=== PATIENT | female | born 1930 | race Caucasian/White ===

== ENCOUNTER → 2017-06-16 | Outpatient (CLI) | payer OTHER, BC ==
[~2017-06-16] MED LIST: ADULT LOW DOSE81 MG PO; APAP650; ASPIR 8181 M1; BACTRIM DS TAB1 EACH PO; BIOTIN1 M1; CENTRUM SILVER1 EAC2; COLACE100 MG PO; COUMADIN 2 MG TA2 M1 PO; COUMADIN 4 MG TA4 M1 PO; COUMADIN 5 MG TA5 M1 PO; ENOXAPARIN100 MG/11 SUBQ; ENOXAPARIN30 MG/0.1 SUBQ; HYDROCODONE-AP1 EAC6 PO; LASIX 20 MG TAB20 MG PO; LIDODERM 5%1 PATC1 TRANSDERM; MIRALAX17 G1 PO; PRAVACHOL20 MG PO; PROTONIX40 M1 PO; TOPROL XL25 MG PO; TRAMADOL 50 MG50 MG PO; TYLENOL325 MG PO; XARELTO15 MG PO; ZOFRAN4 MG
[2017-06-16 15:29] LABS: HEMATOCRIT 33.7 % (37.0-47.0); HEMOGLOBIN 10.5 gm/dL (12.0-15.0); MCH 20.9 pg (26.0-34.0); MCHC 31.2 g/dL (28.0-37.0); MCV 66.8 fL (80.0-100.0); RBC 5.05 mil/uL (4.20-5.00); RDW 19.2 % (10.5-14.5); WBC 6.9 thou/uL (4.0-11.0)
[2017-06-16 15:42] LABS: CALCIUM 9.1 mg/dL (8.5-10.1); CREATININE 0.8 mg/dL (0.6-1.0); POTASSIUM 4.4 mmol/L (3.5-5.1)
== END ==
LOC: SEN 12:17 → RAD 12:44 → SEN 12:44
PROVIDERS: Family Medicine
DX: I51.7 Cardiomegaly (principal); K44.9 Diaphragmatic hernia without obstruction or gangrene; R05 Cough

== ENCOUNTER 2017-08-11 15:38 | Inpatient (IN) | payer OTHER, BC ==
[~2017-08-11] VITALS: Ht 162.6 cm; Wt 70.6 kg
--- NOTE | ~2017-08-11 | PLAN ---
[facility] [place] [address] [address] REHAB UNIT PLAN OF CARE Name: ZULAY HDEZ SARAH Room #: 511-P ADM IN M.R.#: [id number] Admission: 08/11/17 Attend Phys: Parish Pagan MD Discharge: Date of : [birth year] Report #: [id number] THIS REPORT FOR: //name// CC: Parish Up DATE OF SERVICE: 08/13/2017 The patient is seen back today in followup. She continues to complain of right knee pain. She notes discomfort with ambulation, motions over her medial knee. On exam, she is alert, pleasant. Last recorded temperature 36.5, pulse 89, respirations 24, blood pressure 139/69. She has the old right knee incision from her prior patellar tendon repair. There is no swelling, but she does have pain along the medial joint line and medial to the patellar tendon. No obvious instability anterior, posterior or medial lateral. X-ray results reviewed. No evidence of a fracture, but the recommendation was to encourage an MRI of the knee to confirm that all the structures were intact. From a functional perspective, she does need mod assist with transfers and is ambulating 100 feet min assist with a front-wheeled walker, but has antalgia with pain involving that right knee. In occupational therapy, she is min assist with lower body dressing. ASSESSMENT: 1. Right knee pain affecting her therapy involvement. She has medial joint line pain. Prior history of a patellar tendon repair by Dr. Rivera. X-ray results as noted. We will obtain an MRI scan and also asked Orthopedics to assist as the pain is affecting her abilities in therapies. 2. Pulmonary rehabilitation. 3. Multiple right lateral rib fractures with respiratory insufficiency. She continues on nasal prong O2. 4. Pain management issues. 5. History of deep venous thrombosis, bilateral lower extremities, on Coumadin. 6. Functional mobility and activities of daily living deficits. PLAN: The overall plan of care is based on the preadmission screen, post-admission physician evaluation and information garnered from therapy assessments. 1. Estimated length of stay is probably at least 10 days pending progress. 2. Medical prognosis is reasonably good. 3. Anticipated interventions includes the interdisciplinary acute inpatient rehabilitation program with goal of maximizing the patient's functional independence, so that she can hopefully return back to her prior living situation. PT and OT are involved as well as the functional consultant physicians and the interdisciplinary rehabilitation team. 4. Anticipated functional outcomes would be for [place] [address] REHAB UNIT PLAN OF CARE Name: ZULAY HDEZ SARAH Room #: 511-P [facility] IN .R.#: [id number] Admission: 08/11/17 Attend Phys: Parish Pagan MD Discharge: Date of : 10/[birth year] Report #: [id number] independent with transfers, mobility and ADLs, so she can hopefully return back to her prior living situation. 5. Discharge destination would be back to the home setting where she lives in her own apartment. 6. Expected therapy by discipline includes PT and OT 1-1/2 hours per day each five days a week throughout the duration of the acute inpatient rehabilitation stay. <ELECTRONICALLY SIGNED> By: Parish Pagan MD 08/18/17 1219 [id number] Parish Pagan MD /[facility]
--- NOTE | ~2017-08-11 | H ---
[facility] [place] [address] [place] [address] HISTORY AND PHYSICAL Name: ZULAY HDEZ SARAH Room #: 511-P ADM IN M.R.#: [id number] Admission: 08/11/17 Attend Phys: Parish Pagan MD Discharge: Date of : 10/16/[birth year] Report #: [id number] THIS REPORT FOR: //name// CC: Parish Up DATE OF SERVICE: 08/12/2017 HISTORY AND PHYSICAL AND POST-ADMISSION PHYSICIAN EVALUATION HISTORY OF PRESENT ILLNESS: This is an 86-year-old white female originally admitted to [facility] through the Emergency Department with right rib pain after a fall. She initially was seen over at [facility] and x-rays were apparently negative. She went back home and gradually started complaining of more and more pain and also had the development of shortness of breath involving her right lateral chest wall. She was seen in the Emergency Department at [facility] and noted to have multiple right lateral rib fractures with further x-rays. These were noted to involve 4, 5, 6 and 7. She had problems with severe pain. She has respiratory insufficiency. She also was noted to be very sensitive to narcotics with respiratory distress. She has a history of DVT, on warfarin. She has been needing nasal prong O2. She was noted to have significant functional mobility and ADL deficits and with the pulmonary concerns and pain management issues, we have admitted her for acute in-hospital inpatient rehabilitation. PAST MEDICAL HISTORY: Includes a left hip fracture and pelvic fracture, invasive adenocarcinoma of the colon, urinary tract infection, DVT in both lower extremities after left hip pelvis surgery in 2014. She is on Coumadin, status post DVT bilateral lower extremities. History of hyperlipidemia, tonsillectomy and hysterectomy. PAST SURGICAL HISTORY: As noted above. ALLERGIES: CELEBREX, CODEINE, VALIUM, MORPHINE, NONSTEROIDALS AND DARVON. HABITS: No history of tobacco abuse. Some alcohol use, only on special occasions. FAMILY HISTORY: Noncontributory. SOCIAL HISTORY: [facility] at [facility]. She used a 4-wheeled walker premorbidly. She was not on O2. She does have involved family members. REVIEW OF SYSTEMS: She had some complaints of lateral rib pain. No complaints of headache or extremity pain complaints. She does have some complaints of [facility] [address] [place] [address] HISTORY AND PHYSICAL Name: ZULAY HDEZ [facility] Room #: 511-P [facility] [place] ..#: [id number] Admission: 08/11/17 Attend Phys: Parish Pagan MD Discharge: Date of : 10/16/[birth year] Report #: [id number] shortness of breath with activity. PHYSICAL EXAMINATION: GENERAL: An 86-year-old white female who was seen earlier. VITAL SIGNS: Temperature was 97.3, pulse 82, respirations 16, blood pressure 141/68. Sleepy, but would arouse. HEENT: Facies appeared symmetric. She is on nasal prong O2, 1-1/2 liters. CHEST: She has discomfort over the right lateral ribcage. She splints over her ribs. Some decreased breath sounds overall secondary to not wanting to take a large breath. CARDIOVASCULAR: Sounded regular rate and rhythm. ABDOMEN: Bowel sounds positive, nontender. GENITOURINARY AND RECTAL: Deferred. NEUROLOGIC: Appeared to follow basic commands without difficulty. EXTREMITIES: Lower extremities, no focal calf swelling, functional range of motion with strength grade 4-/5. DTRs are trace to 1. She needs contact assistance with functional mobility skills. She was last noted to need mod assist with sit to stand and was min assist for short distance ambulation. ASSESSMENT: An 86-year-old white female with the following problem list: 1. Pulmonary rehabilitation. 2. Multiple right lateral rib fractures with respiratory insufficiency. 3. Pain management issues. 4. Functional mobility and ADL deficits. 5. History of deep venous thrombosis, bilateral lower extremities, on Coumadin. 6. Premorbid fall with gait instability. 7. History of urinary tract infection. PLAN: The patient is admitted for acute in-hospital inpatient rehabilitation. From a post-admission physician evaluation perspective, there are no relevant changes since the preadmission screening. Please see the above review of prior and current medical and functional conditions and comorbidities. Please see the patient's previous and current functional status. As far as risk of complications, she does have the above noted comorbidities. We will need to monitor her O2 saturations, pain management issues, and respiratory status. We will need to monitor her response to her medication management. She does have the above noted comorbidities. Initial plan of care involves the interdisciplinary acute inpatient rehabilitation program with goal of maximizing the patient's functional independence, so that she can hopefully return back to her prior living situation. Prognosis is reasonably good with estimated length of stay, probably at least 7-10 days and likely longer if warranted. Potential barriers would include the patient's multiple medical comorbidities and decreased functional status. The patient meets diagnostic criteria for an acute in-hospital inpatient rehabilitation stay. She meets medical necessity criteria. She does have the [facility] [address] [place] [address] HISTORY AND PHYSICAL Name: ZULAY HDEZ SARAH Room #: 511-P ADM IN M.R.#: [id number] Admission: 08/11/17 Attend Phys: Parish Pagan MD Discharge: Date of : 10/16/[birth year] Report #: [id number] tolerance for an acute rehab stay and has appropriate discharge goals back to the home setting. <ELECTRONICALLY SIGNED> By: Parish Pagan MD 08/12/17 1414 [id number] 1132 Parish Pagan MD /[facility]
[~2017-08-11 15:38] MED LIST changes: +COUMADIN 3 MG TA3 M1 PO; +DURAGESIC1 EACH TRANSDERM; +LIDOPATCH1 EACH TRANSDERM; +OMEPRAZOLE 20 M20 M1 PO
[2017-08-11 18:33] VITALS: BP 123/44
[2017-08-11 19:13] VITALS: BP 113/57
[2017-08-12 03:26] LABS: HEMATOCRIT 29.1 % (37.0-47.0); HEMOGLOBIN 9.2 gm/dL (12.0-15.0); MCH 21.2 pg (26.0-34.0); MCHC 31.4 g/dL (28.0-37.0); MCV 67.5 fL (80.0-100.0); RBC 4.32 mil/uL (4.20-5.00); RDW 19.4 % (10.5-14.5); WBC 6.5 thou/uL (4.0-11.0)
[2017-08-12 03:38] LABS: CALCIUM 8.4 mg/dL (8.5-10.1); CREATININE 0.8 mg/dL (0.6-1.0); POTASSIUM 4.6 mmol/L (3.5-5.1)
[2017-08-12 06:44] VITALS: BP 141/68
[2017-08-12 08:50] LABS: % SATURATION 5 % (20-39); IRON 16 ug/dL (50-170); TIBC 352 ug/dL (250-450); UIBC 336 ug/dL
[2017-08-12 09:08] LABS: INR 2.7; PROTIME 27.2 Seconds (9.3-11.4)
[2017-08-12 19:48] VITALS: BP 139/69
[2017-08-13 06:23] LABS: INR 1.9; PROTIME 19.5 Seconds (9.3-11.4)
[2017-08-13 07:30] VITALS: BP 125/56
[2017-08-13 20:05] VITALS: BP 134/57
[2017-08-14 06:58] LABS: INR 1.8; PROTIME 17.9 Seconds (9.3-11.4)
[2017-08-14 08:15] VITALS: BP 113/49
[2017-08-15 07:49] VITALS: BP 127/73
[2017-08-15 09:00] LABS: INR 2.2; PROTIME 20.8 Seconds (9.3-11.4)
[2017-08-15 20:34] VITALS: BP 130/50
[2017-08-16 07:55] VITALS: BP 103/58
[2017-08-16 20:10] VITALS: BP 125/53
[2017-08-17 07:46] LABS: INR 2.5; PROTIME 24.9 Seconds (9.3-11.4)
[2017-08-17 08:58] VITALS: BP 109/46
[2017-08-17 20:02] VITALS: BP 120/62
[2017-08-18 06:33] LABS: HEMATOCRIT 30.4 % (37.0-47.0); HEMOGLOBIN 9.6 gm/dL (12.0-15.0); MCH 21.3 pg (26.0-34.0); MCHC 31.7 g/dL (28.0-37.0); MCV 67.3 fL (80.0-100.0); PLATELET COUNT 259 thou/uL (150-400); RBC 4.51 mil/uL (4.20-5.00); RDW 19.6 % (10.5-14.5); WBC 5.1 thou/uL (4.0-11.0)
[2017-08-18 06:39] LABS: MANUAL DIFF YES
[2017-08-18 06:41] LABS: CALCIUM 8.6 mg/dL (8.5-10.1); CREATININE 0.8 mg/dL (0.6-1.0); POTASSIUM 4.4 mmol/L (3.5-5.1)
[2017-08-18 08:20] VITALS: BP 118/53
[2017-08-18 08:25] LABS: ABSOLUTE NEUTROPHILS 3.1 thou/uL (1.4-8.2); ANISOCYTOSIS 2+; HYPOCHROMASIA 1+; MICROCYTES 2+; PLATELET ESTIMATE NORMAL; TOTAL CELL COUNT 100
[2017-08-18 19:42] VITALS: BP 131/63
[2017-08-19 08:22] VITALS: BP 116/68
[2017-08-19] MEDS ORDERED: IRON325 PO (14:12)
[2017-08-19] MEDS ORDERED: MIRALAX17 G1 PO (14:12)
[2017-08-19] MEDS ORDERED: COLACE100 MG PO (14:12)
[2017-08-19] MEDS ORDERED: LIDOPATCH1 EACH TRANSDERM (14:12)
[2017-08-19 14:37] VITALS: BP 116/68
[2017-08-19 15:38] VITALS: BP 116/68
== END 2017-08-19 16:03 | disposition home health service (06) | DRG 184 ==
LOC: ENTRNSPT 08-19 15:58 → EDTRNSPTSTS 08-19 16:02
PROVIDERS: Family Medicine; Nurse Practitioner; Physical Medicine & Rehabilitation
DX: S22.41XA Multiple fractures of ribs, right side, initial encounter for closed fracture (principal); K56.609 Unspecified intestinal obstruction, unspecified as to partial versus complete obstruction; S82.144A Nondisplaced bicondylar fracture of right tibia, initial encounter for closed fracture; Z86.718 Personal history of other venous thrombosis and embolism; D64.9 Anemia, unspecified; K59.00 Constipation, unspecified; Y99.8 Other external cause status; Y92.89 Other specified places as the place of occurrence of the external cause; Y93.89 Activity, other specified; W18.39XA Other fall on same level, initial encounter; Z79.01 Long term (current) use of anticoagulants; Z88.6 Allergy status to analgesic agent; Z88.8 Allergy status to other drugs, medicaments and biological substances; Z79.899 Other long term (current) drug therapy
CPT/HCPCS: 10112

== ENCOUNTER → 2017-11-06 | Outpatient (CLI) | payer OTHER, BC ==
[~2017-11-06] VITALS: Ht 160 cm; Wt 68.9 kg
[~2017-11-06] MED LIST changes: +CIPRO250 M1 PO; +IRON325 PO
[2017-11-06 13:24] VITALS: BP 124/58
[2017-11-06 15:45] LABS: HEMATOCRIT 26.6 % (37.0-47.0); HEMOGLOBIN 8.7 gm/dL (12.0-15.0); MCHC 32.8 g/dL (28.0-37.0); PLATELET COUNT 238 thou/uL (150-400); RBC 4.36 mil/uL (4.20-5.00); RDW 18.9 % (10.5-14.5); WBC 5.5 thou/uL (4.0-11.0)
[2017-11-06 16:04] LABS: ABSOLUTE NEUTROPHILS 3.4 thou/uL (1.4-8.2); ALBUMIN 3.2 g/dL (3.4-5.0); ANION GAP 5 mmol/L (7-16); BUN 16 mg/dL (7-18); CALCIUM 8.9 mg/dL (8.5-10.1); CHLORIDE 108 mmol/L (98-107); CHOLESTEROL 158 mg/dL (<200); CO2 27 mmol/L (21-32); CREATININE 0.8 mg/dL (0.6-1.0); GLUCOSE 81 mg/dL (74-106); HDL CHOLESTEROL 81 mg/dL (>40); LDL CHOLESTEROL 63 mg/dL (<100); POTASSIUM 4.5 mmol/L (3.5-5.1); SGOT 20 U/L (15-37); SGPT 20 U/L (30-65); SODIUM 140 mmol/L (136-145); TOTAL BILIRUBIN 0.4 mg/dL (<0.1-1.0); TOTAL PROTEIN 7.2 g/dL (6.4-8.2); TRIGLYCERIDE 74 mg/dL (<150); VLDL 15 mg/dL (<40)
[2017-11-06 16:06] LABS: ANISOCYTOSIS 2+; HYPOCHROMASIA 3+; MICROCYTES 3+; OVALOCYTES OCCASIONAL; POLYCHROMASIA SLIGHT; SCHISTOCYTES OCCASIONAL
== END ==
LOC: SEN 09:20
PROVIDERS: Nurse Practitioner Family
DX: R19.5 Other fecal abnormalities (principal); E78.5 Hyperlipidemia, unspecified

== ENCOUNTER → 2018-06-08 | Outpatient (CLI) | payer OTHER, BC ==
[2018-06-08 10:44] VITALS: BP 132/64
[2018-06-08 11:28] LABS: ABSOLUTE NEUTROPHILS 4.9 thou/uL (1.4-8.2); BASOPHILS 0.3 % (0.0-2.0); EOSINOPHILS 4.7 % (0.0-3.0); HEMATOCRIT 29.2 % (37.0-47.0); LYMPHOCYTES 20.8 % (24.0-44.0); MCH 18.8 pg (26.0-34.0); MCHC 30.8 g/dL (28.0-37.0); MCV 61.2 fL (80.0-100.0); MONOCYTES 9.5 % (1.0-8.0); PLATELET COUNT 234 thou/uL (150-400); POLYS 64.7 % (36.0-66.0); RBC 4.77 mil/uL (4.20-5.00); RDW 19.6 % (10.5-14.5); WBC 7.6 thou/uL (4.0-11.0)
[2018-06-08 11:31] LABS: INR 2.3; PROTIME 22.8 Seconds (9.3-11.4)
[2018-06-08 13:17] LABS: MICROCYTES 3+
[2018-06-08 13:18] LABS: ANISOCYTOSIS 2+; HYPOCHROMASIA 2+; POLYCHROMASIA OCCASIONAL
== END ==
LOC: SEN 10:08
PROVIDERS: Nurse Practitioner Family
DX: Z09 Encounter for follow-up examination after completed treatment for conditions other than malignant neoplasm (principal); K64.8 Other hemorrhoids; D50.9 Iron deficiency anemia, unspecified; E78.5 Hyperlipidemia, unspecified; W19.XXXA Unspecified fall, initial encounter; Z79.01 Long term (current) use of anticoagulants

== ENCOUNTER → 2018-07-13 | Outpatient (CLI) | payer OTHER, BC ==
[~2018-07-13] MED LIST changes: +COLACE 100 MG100 MG PO; +MIRALAX17 GM PO
[2018-07-13 09:20] VITALS: BP 109/40
[2018-07-13 10:37] VITALS: BP 109/40
[2018-07-13 10:50] VITALS: BP 112/49
== END ==
LOC: OPONC 07-06 08:27
DX: D50.0 Iron deficiency anemia secondary to blood loss (chronic) (principal)
CPT/HCPCS: 95000

== ENCOUNTER → 2018-07-21 | Outpatient (CLI) | payer OTHER, BC ==
[2018-07-21 08:20] VITALS: BP 102/50
[2018-07-21 09:30] VITALS: BP 144/63
== END ==
LOC: OPONC 08:14
DX: D50.0 Iron deficiency anemia secondary to blood loss (chronic) (principal)
CPT/HCPCS: 95000

== ENCOUNTER → 2018-08-07 | Outpatient (CLI) | payer OTHER, BC ==
[~2018-08-07] MED LIST changes: +DOXYCYCLINE 10100 MG PO
[2018-08-07 09:16] VITALS: BP 108/52
[2018-08-07 10:46] LABS: ABSOLUTE NEUTROPHILS 5.4 thou/uL (1.4-8.2); BASOPHILS 0.4 % (0.0-2.0); EOSINOPHILS 6.3 % (0.0-3.0); HEMATOCRIT 40.6 % (37.0-47.0); HEMOGLOBIN 12.8 gm/dL (12.0-15.0); LYMPHOCYTES 16.5 % (24.0-44.0); MCH 23.6 pg (26.0-34.0); MCHC 31.5 g/dL (28.0-37.0); MCV 75.1 fL (80.0-100.0); MONOCYTES 7.9 % (1.0-8.0); PLATELET COUNT 181 thou/uL (150-400); POLYS 68.9 % (36.0-66.0); RBC 5.41 mil/uL (4.20-5.00); RDW 35.9 % (10.5-14.5); WBC 7.9 thou/uL (4.0-11.0)
[2018-08-07 11:26] LABS: ANISOCYTOSIS 2+; OVALOCYTES OCCASIONAL; POIKILOCYTOSIS 1+; TEARDROPS RARE
== END ==
LOC: RAD 08:52 → SEN 08:52
PROVIDERS: Nurse Practitioner Family
DX: M19.071 Primary osteoarthritis, right ankle and foot (principal); M20.11 Hallux valgus (acquired), right foot; Z88.5 Allergy status to narcotic agent; Z88.8 Allergy status to other drugs, medicaments and biological substances; Z79.01 Long term (current) use of anticoagulants; Z79.899 Other long term (current) drug therapy